=== PATIENT | male | born 1975 | race American Indian/Alaskan Native ===

== ENCOUNTER 2017-03-05 12:30 | Emergency (ER) | payer BC ==
[2017-03-05 12:37] VITALS: PULSE 78
[2017-03-05] MEDS ORDERED: Sodium Chloride 0.9% 500 ML IV ONE (13:02)
--- NOTE | 2017-03-05 13:33 | RAD ---
HISTORY: chest pain COMPARISON: No prior. TECHNIQUE: Chest PA and lateral FINDINGS: LUNGS: No active pulmonary disease. PLEURA: No significant pleural effusion identified. No pneumothorax apparent. CARDIOVASCULAR: Normal. OSSEOUS STRUCTURES: No significant abnormalities. VISUALIZED UPPER ABDOMEN: Normal. OTHER FINDINGS: None. IMPRESSION: No active disease.
--- NOTE | 2017-03-05 13:37 | ED PDOC ---
HPI: Back Time Seen by Provider: 03/05/17 12:41 Chief Complaint (Nursing): Back Pain Additional Complaint(s): Patient is a 41 y/o M with no significant past medical history presenting with back pain. Patient reports 2 day history of b/l lower back pain. He reports that the pain is worse with movement and radiates into his L upper abdomen. 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 Denies weakness, numbness , tingling, bladder or bowel incontinence. Denies hematuria. Denies fever. Denies chest pain or shortness of breath. Denies trauma. Past Medical History Vital Signs: Last Vital Signs Temp 97.5 F L 03/05/17 12:34 Pulse 78 03/05/17 12:34 Resp 18 03/05/17 12:34 BP 111/75 03/05/17 12:34 Pulse Ox 99 03/05/17 12:34 - Medical History PMH: Asthma - Family History Family History: States: No Known Family Hx - Home Medications Home Medications: Ambulatory Orders Medication Instructions Recorded Cyclobenzaprine [Cyclobenzaprine 10 mg PO TID PRN #20 tab 03/05/17 HCl] - Allergies Allergies/Adverse Reactions: Allergies Allergy/AdvReac Type Severity Reaction Status Date / Time No Known Allergies Allergy Verified 03/05/17 12:33 Review of Systems Constitutional: Negative for: Fever, Chills Cardiovascular: Negative for: Chest Pain, Palpitations, Edema, Light Headedness Respiratory: Negative for: Cough, Shortness of Breath, SOB with Exertion Gastrointestinal: Negative for: Nausea, Vomiting, Abdominal Pain, Diarrhea, Constipation Genitourinary Male: Negative for: Dysuria, Frequency, Incontinence, Hematuria, Penile Discharge, Scrotal Pain, Penile Pain Musculoskeletal: Positive for: Back Pain (b/l, radiating into L upper abdomen). Negative for: Leg Pain Skin: Negative for: Rash Neurological: Negative for: Weakness, Numbness Physical Exam - Reviewed Nursing Documentation Reviewed: Yes Vital Signs Reviewed: Yes - Physical Exam Appears: Positive for: Well, Non-toxic Head Exam: Positive for: ATRAUMATIC, NORMAL INSPECTION, NORMOCEPHALIC Skin: Positive for: Normal Color, Warm, DRY Eye Exam: Positive for: EOMI, Normal appearance, PERRL Neck: Positive for: Normal, Painless ROM, Supple Cardiovascular/Chest: Positive for: Regular Rate, Rhythm Respiratory: Positive for: CNT, Normal Breath Sounds Pulses-Radial (L): 2+ Pulses-Radial (R): 2+ Gastrointestinal/Abdominal: Positive for: Soft. Negative for: Tenderness, Distended Back: Positive for: Normal Inspection. Negative for: L CVA Tenderness, R CVA Tenderness Extremity: Positive for: Normal ROM Neurologic/Psych: Positive for: Alert, tree feller II-XII, Oriented, Gait (steady) - Laboratory Results Result Diagrams: 03/05/17 13:10 03/05/17 13:10 - ECG O2 Sat by Pulse Oximetry: 99 Medical Decision Making Medical Decision Making: Presentation consistent with musculoskeletal pain, but will r/o ptx and renal colic. EKG shows NSR at 75bpm with normal intervals. Cxray negative. Labs grossly normal except for mildly elevated ck but which normal creatinine. 1L IVF infusing and patient aware to increase fluid intake. UA negative for blood. Patient feels better after medication and is ambulating around the ED without issue. Will dc Disposition - Clinical Impression Clinical Impression: Back pain - Disposition Disposition: Routine/Home Disposition Time: 15:00 Condition: GOOD Additional Instructions: Follow up with PMD within 2 days. Return to ED if condition worsens. Take flexeril for pain. Prescriptions: Cyclobenzaprine [Cyclobenzaprine HCl] 10 mg PO TID PRN #20 tab PRN Reason: Pain, Mild (1-3) Instructions: Acute Low Back Pain (ED) Forms: [employer] (Northern Irish), [facility] ED School/Work Excuse
[2017-03-05 13:58] LABS: BASO % 1.1 % (0.0-2.0); EOS # 0.2 K/uL (0.0-0.7); EOS % 5.6 % (0.0-4.0); HEMATOCRIT 43.2 % (35.0-51.0); LYMPH # 1.6 K/uL (1.0-4.3); MEAN CELL VOLUME 71.5 fl (80.0-94.0); MEAN CORPUSCULAR HEMOGLOBIN 23.4 pg (27.0-31.0); MEAN CORPUSCULAR HGB CONC 32.8 g/dL (33.0-37.0); MEAN PLATELET VOLUME 8.4 fl (7.2-11.7); MONO # 0.4 K/uL (0.0-0.8); MONO % 10.9 % (0.0-10.0); NEUT # 1.6 K/uL (1.8-7.0); NEUT % 41.4 % (50.0-75.0); NRBC % 0.1 % (0.0-0.0)
[2017-03-05 14:03] LABS: ALB/GLOB RATIO 1.2 (1.0-2.1); ALKALINE PHOSPHATASE 50 U/L (38-126); ALT/SGPT 63 U/L (21-72); AST/SGOT 36 U/L (17-59); BILIRUBIN,TOTAL 0.5 mg/dl (0.2-1.3); BLOOD UREA NITROGEN 19 mg/dl (9-20); CALCIUM 8.3 mg/dL (8.4-10.2); CARBON DIOXIDE 24 mmol/L (22-30); CHLORIDE 108 mmol/L (98-107); GFR AFRICAN-AMERICAN > 60; GLUCOSE,RANDOM 88 mg/dL (75-110); POTASSIUM 4.1 MMOL/L (3.6-5.0); SODIUM 141 mmol/l (132-148); TOTAL PROTEIN 7.2 G/DL (6.3-8.2)
[2017-03-05 14:53] LABS: RBC URINE 2 /hpf (0-3); URINE BILIRUBIN NEGATIVE (NEGATIVE); URINE BLOOD NEGATIVE (NEGATIVE); URINE COLOR YELLOW (YELLOW); URINE GLUCOSE (UA) NEG (Normal); URINE KETONE NEGATIVE (NEGATIVE); URINE LEUKOCYTE ESTERASE NEG Leu/uL (Negative); URINE PROTEIN NEGATIVE (NEGATIVE); URINE UROBILINOGEN 0.2-1.0 mg/dL (0.2-1.0); WBC URINE < 1 /hpf (0-5)
[2017-03-05 15:10] VITALS: BP 128/78; RESP 19; TEMP 97.6
[2017-03-09 12:57] VITALS: O2SAT 99
== END 2017-03-05 15:10 | disposition home or self-care (01) ==
LOC: H.ER 12:30
DX: M54.9 Dorsalgia, unspecified (principal)
CPT/HCPCS: 71020; 80053; 81003; 82550; 85025; 96374; 99282; J1885; J7040

== ENCOUNTER 2017-11-12 09:27 | Emergency (ER) | payer OTHER, BC ==
[2017-11-12 09:36] VITALS: BMI 26.2
--- NOTE | 2017-11-12 10:42 | ED PDOC ---
HPI: Wound Care - HPI Time Seen by Provider: 11/12/17 09:49 Chief Complaint (Nursing): Suture/Staple Removal History Per: Patient Additional Complaint(s): Pt. states on 10/30/2017 he had sutures placed on his R thigh s/p laceration in [place] and is now here for removal. States laceration repair was done in the ED and did not involve any tendons or ligaments. States that he did have 2 a layer closure which was done by ED staff and not a specialist. Offers no complaints. Denies pain, discharge, fever, swelling. Past Medical History Reviewed: Historical Data, Nursing Documentation, Vital Signs Vital Signs: Last Vital Signs Temp 97.7 F 11/12/17 09:36 Pulse 76 11/12/17 09:36 Resp 16 11/12/17 09:36 BP 134/74 11/12/17 09:36 Pulse Ox 98 11/12/17 09:36 - Medical History PMH: Asthma - Surgical History Surgical History: No Surg Hx - Family History Family History: States: No Known Family Hx - Home Medications Home Medications: Ambulatory Orders Medication Instructions Recorded Cyclobenzaprine [Cyclobenzaprine 10 mg PO TID PRN #20 tab 03/05/17 HCl] - Allergies Allergies/Adverse Reactions: Allergies Allergy/AdvReac Type Severity Reaction Status Date / Time No Known Allergies Allergy Verified 03/05/17 12:33 Review of Systems ROS Statement: Except As Marked, All Systems Reviewed And Found Negative Physical Exam - Physical Exam Appears: Positive for: Well, Non-toxic, No Acute Distress Skin: Positive for: Normal Color, Warm. Negative for: Rash Eye Exam: Positive for: Normal appearance Extremity: Positive for: Other Comments: R medial thigh with sutures in place with central sutures with minimal dehisence without surrounding erythema, swelling, discharge, or tenderness. - ECG O2 Sat by Pulse Oximetry: 98 - Progress ED Course And Treament: Most proximal and distal sutures removed by PA. Other sutures kept in place and advised pt. to have sutures removed in 3 days. Steri strips applied. Disposition - Clinical Impression Clinical Impression: Encounter for removal of sutures, Visit for wound check - Patient ED Disposition Is Patient to be Admitted: No - Disposition Referrals: [facility] [place] [Outside] Disposition: Routine/Home Disposition Time: 10:40 Condition: STABLE Additional Instructions: Suture removal in 3 days. Instructions: Stitches Removal, Wound Care (DC) Forms: [employer] (Syrian)
[2017-11-12 11:25] VITALS: BP 124/70; PULSE 79; RESP 18; TEMP 98; O2SAT 100
== END 2017-11-12 11:24 | disposition home or self-care (01) ==
LOC: H.ER 09:27
DX: Z48.02 Encounter for removal of sutures (principal)

== ENCOUNTER 2017-11-17 10:12 | Emergency (ER) | payer OTHER, BC ==
[2017-11-17 10:13] VITALS: BMI 26.2
[2017-11-17 10:42] VITALS: BP 124/83; PULSE 78; TEMP 98; O2SAT 97
[2017-11-17 11:56] VITALS: RESP 16
--- NOTE | 2017-11-17 12:44 | ED PDOC ---
HPI: Wound Care - HPI Time Seen by Provider: 11/17/17 12:02 Chief Complaint (Nursing): Wound Check Chief Complaint (Provider): suture removal History Per: Patient Exam Limitations: no limitations Onset/Duration Of Symptoms: Days (10/30) Current Symptoms Are (Timing): Still Present Additional Complaint(s): 42 year old male presents to the ED for suture removal. Reports sutures were [facility] on 10/30 at an [facility]. Patient was seen by provider on , and was advised to return in 3 days for suture removal. Currently, he has no other complaints, pain or limited range of motion. PMD: No Family Provider Past Medical History Reviewed: Historical Data, Nursing Documentation, Vital Signs Vital Signs: Last Vital Signs Temp 98 F 11/17/17 11:45 Pulse 78 11/17/17 11:45 Resp 16 11/17/17 11:45 BP 124/83 11/17/17 11:45 Pulse Ox 97 11/17/17 11:45 - Medical History PMH: Asthma - Surgical History Other surgeries: hand and ankle surgery - Family History Family History: States: Unknown Family Hx - Social History Current smoker - smoking cessation education provided: Yes (Light Smoker < 10 Cigarettes Daily) Alcohol: Social Drugs: Denies - Home Medications Home Medications: Ambulatory Orders Medication Instructions Recorded Cyclobenzaprine [Cyclobenzaprine 10 mg PO TID PRN #20 tab 03/05/17 HCl] - Allergies Allergies/Adverse Reactions: Allergies Allergy/AdvReac Type Severity Reaction Status Date / Time No Known Allergies Allergy Verified 11/17/17 11:45 Review of Systems ROS Statement: Except As Marked, All Systems Reviewed And Found Negative Musculoskeletal: Negative for: Leg Pain Skin: Positive for: Other (suture removal) Physical Exam - Reviewed Nursing Documentation Reviewed: Yes Vital Signs Reviewed: Yes - Physical Exam Appears: Positive for: Well, Non-toxic, No Acute Distress Head Exam: Positive for: ATRAUMATIC, NORMAL INSPECTION, NORMOCEPHALIC Skin: Positive for: Normal Color, Warm, Dry Extremity: Positive for: Normal ROM (Right hip and right knee), Other (scabbing noted, minimal dehiscence noted on medial part of laceration). Negative for: Tenderness, Swelling (erythema) Neurologic/Psych: Positive for: Alert, Oriented (x3), Gait (steady). Negative for: Motor/Sensory Deficits - ECG O2 Sat by Pulse Oximetry: 97 (RA) Pulse Ox Interpretation: Normal Medical Decision Making Medical Decision Making: Time: 1202 Initial Plan: --Reevaluation Due to sutures being put in 14 days ago, likely akers of infection increasing therefore removed despite small areas of dehiscence. All sutures were removed by PA without difficulty and Steri strips were applied. Patient was provided wound care instructions and required to apply steri strip and provided Steri strips. Clinical Impression: Encounter for removal of sutures, wound dehiscence Upon provider evaluation patient is medically stable, and requires no further treatment in the ED at this time. Patient will be discharged. Counseling was provided and all questions were answered regarding diagnosis. There is agreement to discharge plan. Return if symptoms persist or worsen. Scribe Attestation: Documented by Karolina Davis, acting as a scribe for Armando Garcia PA-C Provider Scribe Attestation: All medical record entries made by the Scribe were at my direction and personally dictated by me. I have reviewed the chart and agree that the record accurately reflects my personal performance of the history, physical exam, medical decision making, and the department course for this patient. I have also personally directed, reviewed, and agree with the discharge instructions and disposition. Disposition - Clinical Impression Clinical Impression: Encounter for removal of sutures, Wound dehiscence - Patient ED Disposition Is Patient to be Admitted: No - Disposition Disposition: Routine/Home Disposition Time: 12:31 Condition: STABLE Additional Instructions: Keep wound clean. Follow up with PMD for further evaluation Return to ED immediately for any concerns or questions. Instructions: Wound Care (DC), Wound Dehiscence (DC) Forms: [employer] ([place]orean), [facility] ED School/Work Excuse
== END 2017-11-17 12:31 | disposition home or self-care (01) ==
LOC: H.ER 10:12
DX: T81.30XD Disruption of wound, unspecified, subsequent encounter (principal); Z48.02 Encounter for removal of sutures; F17.210 Nicotine dependence, cigarettes, uncomplicated; J45.909 Unspecified asthma, uncomplicated